=== PATIENT | female | born 1975 | race Caucasian/White ===

== ENCOUNTER 2020-04-28 06:00 | Inpatient (IN) ==
[2020-04-28] MEDS ORDERED: OXYTOCIN/DEXTROSE 5%-WATER 30 UNITS/500 ML BAG IV ONE ×2 (06:15→17:28)
[2020-04-28] MEDS ORDERED: DEXTROSE 5%-LACTATED RINGERS 1,000 ML IV PRN (06:15)
[2020-04-28] MEDS ORDERED: ONDANSETRON 4 MG TAB.RAPDIS PO PRN (06:15)
[2020-04-28] MEDS: RINGER'S SOLUTION,LACTATED 1,000 ML IV ONE ×2 (07:03→18:52)
--- NOTE | 2020-04-28 11:27 | HP ---
Chief Complaint - Chief Complaint Date of Service: 04/28/20 Time of Service: 11:22 Chief Complaint: induction of labor History of Present Illness: 44 yo at 39 3/7 weeks presents for induction of labor due to advanced maternal age. This complicated by anemia, thalassemia minor, history of PTL, and advanced maternal age. Rh negative Rubella immune GBS negative Medical History (Last Reviewed 04/28/20 @ 12:53 by Herbert Harrison DO) Advanced maternal age affecting , antepartum (Chronic) Advanced maternal age (AMA) in Onset Date: ~2012 2012 & 2019 Rh negative status during Onset Date: Unknown Body piercing Onset Date: Unknown Constipation Onset Date: 04/02/12 Thalassemia Onset Date: 04/04/12 minor Abnormal Pap smear of cervix Onset Date: ~2004 w/neg colpo-no tx History of labor Onset Date: ~2000 Surgical History: Surgical History (Last Reviewed 04/28/20 @ 12:53 by Herbert Harrison DO) History of colposcopy Onset Date: ~2004 Negative History of dental surgery Onset Date: 08/08/19 [place] teeth extracted Onset Date: ~2005 Family History: Family History (Last Reviewed 04/28/20 @ 12:53 by Herbert Harrison DO) Mother Asthma COPD (chronic obstructive pulmonary disease) Father Alive and well Grandfather Thalassemia minor Son Thalassemia minor Social History: (Last Reviewed 04/28/20 @ 12:53 by Herbert Harrison DO) Social History: adopted: No [place] [facility]: [place] Marital status: household members: spouse, children number of children: 6 current occupational status: employed current occupation: [employer] current occupational exposures/hazards: No Highest education level completed: Bachelor's degree Sexually Active: Yes Service: No Tobacco: Smoking Status: Former smoker Alcohol: alcohol intake: current alcohol intake frequency: holiday/special occasion details: No alcohol since + UPT Substance Use: substance use type: does not use Dietary Habits: caffeine: Yes caffeine comment: 1-2/day Type: coffee, carbonated beverages Exercise: frequency: does not exercise Robyn/Roman Catholic: agree to transfusion: Yes Review Of Systems (GEN) - Review of Systems Generalized/Overall Review: Present: No Symptoms Reported EENTM: Present: No Symptoms Reported Respiratory: Present: No Symptoms Reported Cardiac: Present: No Symptoms Reported Abdominal: Present: No Symptoms Reported Genitourinary: Present: No Symptoms Reported Musculoskeletal: Present: No Symptoms Reported Neurological: Present: No Symptoms Reported Skin: Present: No Symptoms Reported Endocrine: Present: No Symptoms Reported Immunizations: IMMUNIZATION HX Immunizations Up to Date Yes Allergies/Adverse Reactions: Allergies Allergy/AdvReac Type Severity Reaction Status Date / Time No Known Allergies Allergy Verified 04/26/20 11:16 Home Medications: HOME MEDICATIONS PNV 153-FA 400 mcg-om3 35 mg-dha 25 mg-epa 5 mg-fish oil chew tablet 2 tab PO DAILY tab 11/03/19 [Last Taken 04/27/20 17:00] Exam - Exam Vital Signs: Vital Signs - Last Taken Temp 36.8 C 04/28/20 06:19 Pulse 120 H 04/28/20 06:19 Resp 18 04/28/20 06:19 BP 123/87 04/28/20 06:19 Pulse Ox 99 04/28/20 06:19 Constitutional: Present: Alert, Oriented x3, Cooperative, No distress ENT Exam: Present: hearing grossly normal Breasts: Present: Exam deferred Respiratory: Present: lungs clear, no respiratory distress Cardiovascular/Chest: Present: regular rate, rhythm, no edema Abdomen: Present: soft, nontender, no rebound tenderness, other - gravid /Rectal: Present: Other - Cervix 4/50/-3 Extremity: Present: no pedal edema, no calf tenderness Skin Exam: Present: normal color, warm/dry, no cyanosis Neurologic: Present: alert, normal mood/affect - blunted mood/affect, oriented x 3 Appearance: Present: appropriate appearance, appropriate insight Eye contact: Present: cooperative, good eye contact Thoughts: Present: normal thought pattern Assessment/Plan - Assessment/Plan (1) Advanced maternal age affecting , antepartum Assessment: Admit for pitocin induction of labor. Epidural PRN. Problem: Chronic (2) Anemia Problem: Chronic Qualifiers: Anemia type: iron deficiency Iron deficiency anemia type: inadequate d ietary iron intake Qualified Code(s): D50.8 - Other iron deficiency anemias (3) Thalassemia minor Problem: Chronic (4) History of labor Problem: Inactive
--- NOTE | 2020-04-28 15:34 | PN ---
Progess Note - Interim Date: 04/28/20 Time: 15:31 Narrative: 04/28/20 15:31 Patient rating her contractions as mild to moderate Vital signs stable. Pitocin at 8 mu/min. FHT: 120 baseline, reassuring contractions q 2-3 min Cervix: 4/60 5/-2, AROM-clear Impression: Intrauterine at 39-3/7 weeks induction of labor for advanced maternal age Plan: Continue present plan
[2020-04-28] MEDS ORDERED: BUPIVACAINE HCL/0.9 % NACL/PF 250 ML EP PRN (16:39)
[2020-04-28] MEDS ORDERED: ONDANSETRON HCL/PF 2 MG/ML VIAL IV PRN (16:39)
[2020-04-28] MEDS ORDERED: NALOXONE HCL 1 MG/1 ML SYRG IV PRN (16:39)
[2020-04-28] MEDS ORDERED: fentaNYL CITRATE/PF 50 MCG/ML AMPUL IT SCH (16:45)
[2020-04-28] MEDS ORDERED: BENZOCAINE/MENTHOL 81 SPRAY CAN TP PRN (17:28)
[2020-04-28] MEDS ORDERED: SENNOSIDES 8.6 MG TABLET PO PRN (17:28)
[2020-04-28] MEDS ORDERED: HYDROCORTISONE 30 APPL TUBE TP PRN (17:28)
[2020-04-28] MEDS ORDERED: GLYCERIN/WITCH HAZEL LEAF 40 APPL BOX TP PRN (17:28)
[2020-04-28] MEDS ORDERED: BISACODYL 10 MG SUPP.RECT RC PRN (17:28)
[2020-04-28] MEDS ORDERED: IBUPROFEN 800 MG TABLET PO PRN (17:28)
[2020-04-28] MEDS ORDERED: oxyCODONE HCL/ACETAMINOPHEN 1 TAB TABLET PO PRN (17:28)
--- NOTE | 2020-04-28 17:36 | OR ---
Operative Report - Dictated Report Narrative: Delivery of viable male at 1709 on 04/28/2020 with Apgars 9 and 9, weighing 3798 g rotated from EDGARDO to CHIVO position. 2nd stage of labor: 11 minutes head/body interval: 1 minute Anesthesia: None estimated weight: 4000 g diabetes: No Attendants at : [OB: Herbert Harrison, Ped: Not present, Nurses: Lupe Adkins, Mendy Leija, Others: None Position of head at delivery: EDGARDO right shoulder anterior Maneuvers used: Que yes, Suprapubic pressure no, Wood's screw yes, Delivery of posterior shoulder no, Arm sweep no, Episiotomy no, Other: None Description: The anterior shoulder would not come under the pubic bone but with a counterclockwise rotation the shoulders easily delivered. Poor maternal propulsive efforts took additional time to deliver the rest of the baby. moving all extremities at yes, Injuries noted: None Cord gases not obtained Mother's condition: Small perineal abrasion with no repair needed EBL: 100ml Mother informed of dystocia and potential sequelae. Recommendations for future pregnancies: Patient has delivered a larger baby than this without difficulty. I feel the dystocia was mostly due to lack of maternal propulsive effort. History for History for Definition: * The number of deliveries resulting in a live the patient experienced prior to current hospitalization * The previous delivery of live twins or any live multiple gestation is considered one live event. *If primagravida or nulliparous is documented select zero for the number of previous live births. Live Events: Live Events: 6
[2020-04-28] MEDS: IBUPROFEN 800 MG TABLET PO PRN (18:39)
[2020-04-28] MEDS ORDERED: TERBUTALINE SULFATE 1 MG/ML VIAL ONE (20:53)
[2020-04-29] MEDS: IBUPROFEN 800 MG TABLET PO PRN ×3 (00:39→15:48)
[2020-04-29] MEDS: DOCUSATE SODIUM 100 MG CAPSULE PO SCH ×2 (00:40→08:24)
[2020-04-29] MEDS ORDERED: PRENATAL VITS96/IRON FUM/FOLIC 1 TAB TABLET PO SCH (09:00)
--- NOTE | 2020-04-29 09:18 | PN ---
Subjective - Date and Time Seen Date: 04/29/20 Time: 09:18 Objective - Vitals Vitals: Last Vital Signs Temp 36.6 C 04/29/20 06:45 Pulse 86 04/29/20 06:45 Resp 18 04/29/20 06:45 BP 105/66 04/29/20 06:45 Pulse Ox 99 04/29/20 06:45 Patient denies complaints. Lochia wnl abdomen - soft, nontender Uterus -firm, at umbilicus - 1 no calf tenderness Impression: day #1 - s/p spontaneous vaginal delivery. Plan: Continue routine care Assessment/Plan - Problems/Diagnosis (1) Advanced maternal age affecting , antepartum Problem: Chronic (2) Anemia Problem: Chronic Qualifiers: Anemia type: iron deficiency Iron deficiency anemia type: inadequate dietary iron intake Qualified Code(s): D50.8 - Other iron deficiency anemias (3) Thalassemia minor Problem: Chronic (4) History of labor Problem: Inactive
--- NOTE | 2020-04-29 16:53 | PN ---
[place] Note - Interim Date: 04/29/20 Time: 16:51 Narrative: 04/29/20 16:51 Pt's baby transferred to [facility] for respiratory issues. She desires early discharge. Routine d/c instructions given. F/u in 4 weeks.
[2020-04-29 18:39] VITALS: BP 133/80
== END 2020-04-29 18:30 | disposition home or self-care (01) | DRG 807 ==
LOC: OB 06:08 → MS 22:14
PROVIDERS: ADMIT Obstetrics & Gynecology; ATTEND Obstetrics & Gynecology
CPT/HCPCS: 59025